=== PATIENT | female | born 1965 | race African-American/Black ===

== ENCOUNTER 2016-05-31 20:57 | Emergency (ER) | payer OTHER ==
[~2016-05-31] VITALS: Ht 170.2 cm; Wt 145.1 kg
[~2016-05-31 20:57] MED LIST: ALBU8.5H6 IH; FURO-69 PO; HYDR-971 PO; HYDR25TA9 PO; LISI-334 PO; LORA10TA3 PO
[2016-05-31 21:09] VITALS: BP 157/77
[2016-05-31] MEDS ORDERED: PROMETH/CODEINE 6.25/10MG 5 ML SYRUP. PO ONE (21:45)
[2016-05-31] MEDS ORDERED: IPRATRPIUM/ALBUTEROL 0.5/2.5MG 3 ML NEBU. NEB ONE (21:45)
[2016-05-31] MEDS ORDERED: ACETAMINOPHEN 500 MG TABLET PO ONE (21:45)
[2016-05-31] MEDS ORDERED: PREDNISONE 20 MG TABLET PO ONE (21:45)
[2016-05-31] MEDS ORDERED: PRED50TA PO (22:36)
[2016-05-31] MEDS ORDERED: PROAIR RESPICL90 MCG IH (22:36)
[2016-05-31] MEDS ORDERED: HYDR115S2 PO (22:36)
[2016-05-31] MEDS ORDERED: AZIT250T PO (22:36)
--- NOTE | 2016-05-31 22:37 | PHYS DOC ---
Past Medical History Past Medical History: Hypertension Past Surgical History: Tubal ligation, Other Additional Past Surgical Histo: patial hyst., 2 tubal pregnancies Alcohol Use: Occasionally Drug Use: None Adult General Chief Complaint Chief Complaint: COUGH HPI HPI Patient is a 50 year old female with history of hypertension who presents with a productive cough nasal congestion and body aches that began yesterday. PCP Dr. Wheeler Review of Systems Review of Systems Constitutional: Denies fever or chills [] Eyes: Denies change in visual acuity, redness, or eye pain [] HENT: nasal congestion Respiratory: cough Cardiovascular: No additional information not addressed in HPI [] GI: Denies abdominal pain, nausea, vomiting, bloody stools or diarrhea [] : Denies dysuria or hematuria [] Musculoskeletal: Denies back pain or joint pain [] Integument: Denies rash or skin lesions [] Neurologic: Denies headache, focal weakness or sensory changes [] Endocrine: Denies polyuria or polydipsia [] Current Medications Current Medications Current Medications Medications (Trade) Dose Ordered Sig/[facility] Start Time Stop Time Status Last Admin Dose Admin Acetaminophen (Tylenol) 1,000 mg 1X ONCE 05/31/16 21:45 05/31/16 21:46 DC 05/31/16 21:38 1,000 MG Albuterol/ Ipratropium (Duoneb) 3 ml 1X ONCE 05/31/16 21:45 05/31/16 21:46 DC 05/31/16 22:03 3 ML Prednisone (Prednisone) 60 mg 1X ONCE 05/31/16 21:45 05/31/16 21:46 DC 05/31/16 21:38 60 MG Promethazine HCl/ Codeine (Phenergan With Codeine) 5 ml 1X ONCE 05/31/16 21:45 05/31/16 21:46 DC 05/31/16 21:38 5 ML Allergies Allergies Allergies Coded Allergies Type Severity Reaction Last Updated Verified No Known Drug Allergies 02/06/13 No Physical Exam Physical Exam Constitutional: Well developed, well nourished, no acute distress, non-toxic appearance. [] HENT: Normocephalic, atraumatic, bilateral external ears normal, oropharynx moist, no oral exudates, nose normal. [] Eyes: PERRLA, EOMI, conjunctiva normal, no discharge. [] Neck: Normal range of motion, no tenderness, supple, no stridor. [] Cardiovascular:Heart rate regular rhythm, no murmur [] Lungs & Thorax: Patient is actively coughing in the ED, lungs sound coarse. Abdomen: Bowel sounds normal, soft, no tenderness, no masses, no pulsatile masses. [] Skin: Warm, dry, no erythema, no rash. [] Back: No tenderness, no CVA tenderness. [] Extremities: No tenderness, no cyanosis, no clubbing, ROM intact, no edema. [] Neurologic: Alert and oriented X 3, normal motor function, normal sensory function, no focal deficits noted. [] Psychologic: Affect normal, judgement normal, mood normal. [] Current Patient Data Vital Signs Vital Signs Date Time Temp Pulse Resp B/P Pulse Ox O2 Delivery O2 Flow Rate FiO2 05/31/16 22:03 96 Room Air 05/31/16 21:09 99.0 86 30 99.0 EKG EKG [] Radiology/Procedures Radiology/Procedures [] Course & Med Decision Making Course & Med Decision Making Pertinent Labs and Imaging studies reviewed. (See chart for details) Patient is in the ED with a productive cough and nasal congestion since yesterday. Her lungs were very coarse on arrival to the ED. She was given a DuoNeb treatment, her lungs cleared up. She was also given prednisone. Chest x- ray interpreted by Dr. Hubbard was suspicious for left lower lobe pneumonia. Patient to be discharged with azithromycin, prednisone and cough medicine. Discharged with instructions to follow-up with the primary care doctor in the next 3-7 days. Dragon Disclaimer Dragon Disclaimer This electronic medical record was generated, in whole or in part, using a voice recognition dictation system. Departure Departure Impression: Primary Impression: Pneumonia Additional Impression: Bronchitis Disposition: HOME, SELF-CARE Condition: STABLE Referrals: ALEX WHEELER MD (PCP) Follow-up with your doctor in one week Patient Instructions: Acute Bronchitis, Pneumonia, Adult Additional Instructions: You were seen for cough in the ED, your chest x-ray was suspicious for pneumonia and bronchitis. We did put you on antibiotics. Complete them. Take the rest prescribed medicines as ordered Scripts Albuterol Sulfate (Proair Respiclick)90 Mcg Aer.pow.ba1 Puff IH PRN Q6HRS PRN SHORTNESS OF BREATH #1 INHALER Prov:MUTUNGA,RUSTY YARD WORKER 05/31/16 Azithromycin (Zithromax)250 Mg Tablet1 Pkg PO UD #1 PKG Prov:RUSTY CHRISTIAN APRN 05/31/16 Hydrocodone/Chlorphen Polis (Tussionex Pennkinetic Susp)480 Ml Eileen.er.12h5 Ml PO Q6-8HRS PRN COUGH #100 ML Prov:RUSTY CHRISTIAN APRN 05/31/16 Prednisone 50 Mg Tablet1 Tab PO DAILY #4 TAB Prov:RUSTY CHRISTIAN APRN 05/31/16 Problem Qualifiers Primary Impression: Pneumonia Pneumonia type: due to unspecified organism Laterality: left Lung location : lower lobe of lung Qualified Code: J18.1 - Lobar pneumonia, unspecified organism RUSTY CHRISTIAN APRN May 31, 2016 22:37
--- NOTE | 2016-06-01 07:51 | RAD ---
Indication flulike symptoms. PA and lateral views of the chest were obtained. Comparison is made to an examination 11/30/2015. The heart size is at the upper limits of normal. There is no congestive heart failure. A focal infiltrate is not seen. Significant pleural fluid is not present. There is no pneumothorax. Overall a significant change compared to the previous exam is not seen. IMPRESSION: No acute or focal process. No significant change
== END 2016-05-31 22:43 | disposition home or self-care (01) ==
LOC: ER 20:57
DX: J18.1 Lobar pneumonia, unspecified organism (principal); J20.9 Acute bronchitis, unspecified; I10 Essential (primary) hypertension
CPT/HCPCS: 71020; 94250; 94640; 99284; J7512; J7620

== ENCOUNTER 2016-07-30 10:36 | Emergency (ER) | payer OTHER ==
[~2016-07-30] VITALS: Ht 160 cm; Wt 140.6 kg
[~2016-07-30 10:36] MED LIST changes: +AZIT250T PO; +HYDR115S2 PO; +PRED50TA PO; +PROAIR RESPICL90 MCG IH
--- NOTE | 2016-07-30 11:25 | RAD ---
EXAM: Chest one view. HISTORY: Chest pain, slurred speech. COMPARISON: 05/31/2016. FINDINGS: A frontal view of the chest is obtained. There are no confluent infiltrates. There is no pneumothorax or pleural effusion. The heart is mildly to moderately enlarged given this projection. IMPRESSION: 1. Cardiomegaly.
[2016-07-30 11:37] LABS: BASO % 0 % (0-3); EOS % 2 % (0-3); HEMATOCRIT 38.6 % (36.0-47.0); HEMOGLOBIN 12.8 g/dL (12.0-15.5); LYMPH # 1.6 x10^3/uL (1.0-4.8); LYMPH % 29 % (24-48); MEAN CORPUSCULAR HEMOGLOBIN 31 pg (25-35); MEAN CORPUSCULAR HGB CONC 33 g/dL (31-37); MEAN CORPUSCULAR VOLUME 95 fL (79-100); MONO % 8 % (0-9); NEUT % 61 % (31-73); PLATELET COUNT 207 x10^3/uL (140-400); RED BLOOD COUNT 4.07 x10^6/uL (3.50-5.40); RED CELL DISTRIBUTION WIDTH 14.8 % (11.5-14.5); WHITE BLOOD COUNT 5.6 x10^3/uL (4.0-11.0)
[2016-07-30 11:43] LABS: CALCIUM 8.9 mg/dL (8.5-10.1); CREATININE 0.8 mg/dL (0.6-1.0); GFR 91.9; POTASSIUM 3.9 mmol/L (3.5-5.1); PROTHROMBIN TIME PATIENT 12.5 SEC (11.7-14.0)
[2016-07-30 11:50] LABS: ALBUMIN 3.6 g/dL (3.4-5.0); ALBUMIN/GLOBULIN RATIO 0.9 (1.0-1.7); MAGNESIUM 2.2 mg/dL (1.8-2.4); TOTAL BILIRUBIN 0.3 mg/dL (0.2-1.0); TOTAL PROTEIN 7.5 g/dL (6.4-8.2)
[2016-07-30 11:57] LABS: CKMB MASS 0.6 ng/mL (0.0-3.6)
--- NOTE | 2016-07-30 12:02 | RAD ---
EXAM: CT head without contrast. HISTORY: Slurred speech, dizziness. TECHNIQUE: Computed tomography of the head was performed without intravenous contrast. COMPARISON: None. FINDINGS: There is no intracranial hemorrhage. Hypoattenuation within the periventricular white matter indicates mild to moderate chronic small vessel ischemic change. The ventricles are normal in size and position. The visualized paranasal sinuses appear clear. The orbits are unremarkable. The temporal bones are unremarkable. The calvarium reveals no suspicious lesions. IMPRESSION: 1. No acute intracranial findings. Mild to moderate chronic small vessel ischemic white matter change. *One or more of the following individualized dose reduction techniques were utilized for this examination: 1. Automated exposure control. 2. Adjustment of the mA and/or kV according to patient size. 3. Use of iterative reconstruction technique.
[2016-07-30 12:08] LABS: BILIRUBIN,URINE NEGATIVE (NEG); GLUCOSE,URINE NEGATIVE (NEG); NITRITE,URINE NEGATIVE (NEG); PROTEIN,URINE NEGATIVE (NEG-TRACE); UROBILINOGEN,URINE 0.2 mg/dL (0.2 mg/dL)
[2016-07-30 12:16] LABS: BARBITURATES NEG (NEG); BENZODIAZEPINES NEG (NEG); CANNABINOIDS NEG (NEG); COCAINE NEG (NEG); METHADONE NEG (NEG); OPIATES NEG (NEG); PHENCYCLIDINE NEG (NEG)
--- NOTE | 2016-07-30 12:25 | EKG ---
[facility] [address] [place] [address] Test Date: 2016-07-30 Test Time: 10:44:35 Pat Name: JAVIER FUNES Department: Room: Gender: F Ripsaw Operator: : 1965 Requested By: RUSTY CHRISTIAN Order Number: [id number] Reading MD: Rudy Maldonado Measurements Intervals [place] Rate: 79 P: 60 VT: 146 QRS: -24 QRSD: 102 T: 14 QT: 380 QTc: 437 Interpretive Statements SINUS RHYTHM LEFTWARD AXIS QRS(T) CONTOUR ABNORMALITY CONSIDER ANTEROSEPTAL MYOCARDIAL DAMAGE RI6.01 Unconfirmed report Compared to ECG 11/30/2015 20:23:07 No significant changes Electronically Signed On 07-31-2016 11:04:24 CDT by Rudy Maldonado
[2016-07-30 13:07] LABS: BACTERIA,URINE FEW /HPF (0-FEW); RBC,URINE RARE /HPF (0-2); SQUAMOUS EPITHELIAL CELL,UR FEW /LPF
--- NOTE | 2016-07-30 13:11 | PHYS DOC ---
Past Medical History Past Medical History: Anxiety, Depression, Hypertension Past Surgical History: Tubal ligation, Other Additional Past Surgical Histo: patial hyst., 2 tubal pregnancies Alcohol Use: Occasionally Drug Use: None Adult General Chief Complaint Chief Complaint: ANXIETY/PANIC ATTACK HPI HPI Patient is a 51 year old female with history of hypertension depression and anxiety who presents today with multiple complaints. Patient is complaining of slurred speech, mid substernal chest pain radiating to the right shoulder unable to rate it or describe it or describe unable to figure anything that makes the pain worse or better, anxiety, depression, patient states the symptoms occurred this morning, and states she has no symptoms right now. Patient states she lost her son approximately 2 or 3 years ago due to a gunshot injury. Patient states since then she's had major anxiety and depression. Patient states she goes through episodes where she has chest pain, slurred speech, gets very anxious and sometimes can't breathe. Patient states she has been told by her own primary care doctor she needs to get counseling as well as was put on Trazodone. Patient states the Trazodone made her very depressed and she stopped taking it. Patient denies any symptoms right now. She states all her symptoms subsided hours ago but she wants to be checked out. She also states her daughter is giving her alot of stress. She states her daughter was jailed and is currently is in a group home house. Patient states her daughter has children who are with the baby daddy. Patient states there is a lot of drama surrounding the daughter, children and baby daddy and she gets dragged into their issues. Patient denies any suicidal or homicidal ideation. Review of Systems Review of Systems Constitutional: Denies fever or chills [] Eyes: Denies change in visual acuity, redness, or eye pain [] HENT: Denies nasal congestion or sore throat [] Respiratory: Denies cough or shortness of breath [] Cardiovascular: chest pain GI: Denies abdominal pain, nausea, vomiting, bloody stools or diarrhea [] : Denies dysuria or hematuria [] Musculoskeletal: Denies back pain or joint pain [] Integument: Denies rash or skin lesions [] Neurologic: slurred speech Endocrine: Denies polyuria or polydipsia [] Allergies Allergies Allergies Coded Allergies Type Severity Reaction Last Updated Verified No Known Drug Allergies 02/06/13 No Physical Exam Physical Exam Constitutional: Well developed, well nourished, no acute distress, non-toxic appearance. [] HENT: Normocephalic, atraumatic, bilateral external ears normal, oropharynx moist, no oral exudates, nose normal. [] Eyes: PERRLA, EOMI, conjunctiva normal, no discharge. [] Neck: Normal range of motion, no tenderness, supple, no stridor. [] Cardiovascular:Heart rate regular rhythm, no murmur [] Lungs & Thorax: Bilateral breath sounds clear to auscultation [] Abdomen: Bowel sounds normal, soft, no tenderness, no masses, no pulsatile masses. [] Skin: Warm, dry, no erythema, no rash. [] Back: No tenderness, no CVA tenderness. [] Extremities: No tenderness, no cyanosis, no clubbing, ROM intact, no edema. [] Neurologic: Alert and oriented X 3, normal motor function, normal sensory function, no focal deficits noted. Cranial nerves II-XII intact. Psychologic: Affect normal, judgement normal, mood normal. [] Current Patient Data Vital Signs Vital Signs Date Time Temp Pulse Resp B/P (MAP) Pulse Ox O2 Delivery O2 Flow Rate FiO2 07/30/16 14:07 70 25 143/68 (93) 97 Room Air 07/30/16 10:40 98.9 98.9 Lab Values Laboratory Tests Test 07/30/16 11:22 07/30/16 11:53 White Blood Count 5.6 x10^3/uL (4.0-11.0) Red Blood Count 4.07 x10^6/uL (3.50-5.40) Hemoglobin 12.8 g/dL (12.0-15.5) Hematocrit 38.6 % (36.0-47.0) Mean Corpuscular Volume 95 fL (79-100) Mean Corpuscular Hemoglobin 31 pg (25-35) Mean Corpuscular Hemoglobin Concent 33 g/dL (31-37) Red Cell Distribution Width 14.8 % (11.5-14.5) H Platelet Count 207 x10^3/uL (140-400) Neutrophils (%) (Auto) 61 % (31-73) Lymphocytes (%) (Auto) 29 % (24-48) Monocytes (%) (Auto) 8 % (0-9) Eosinophils (%) (Auto) 2 % (0-3) Basophils (%) (Auto) 0 % (0-3) Neutrophils # (Auto) 3.4 x10^3uL (1.8-7.7) Lymphocytes # (Auto) 1.6 x10^3/uL (1.0-4.8) Monocytes # (Auto) 0.4 x10^3/uL (0.0-1.1) Eosinophils # (Auto) 0.1 x10^3/uL (0.0-0.7) Basophils # (Auto) 0.0 x10^3/uL (0.0-0.2) Prothrombin Time 12.5 SEC (11.7-14.0) Prothrombin Time INR 1.0 (0.8-1.1) PTT 31 SEC (24-38) Fibrinogen 402 mg/dL (200-440) D-Dimer (Britt) 0.30 ug/mlFEU (0.00-0.50) Sodium Level 140 mmol/L (136-145) Potassium Level 3.9 mmol/L (3.5-5.1) Chloride Level 106 mmol/L (98-107) Carbon Dioxide Level 28 mmol/L (21-32) Anion Gap 6 (6-14) Blood Urea Nitrogen 9 mg/dL (7-20) Creatinine 0.8 mg/dL (0.6-1.0) Estimated GFR (Cockcroft-Gault) 91.9 BUN/Creatinine Ratio 11 (6-20) Glucose Level 104 mg/dL (70-99) H Calcium Level 8.9 mg/dL (8.5-10.1) Magnesium Level 2.2 mg/dL (1.8-2.4) Total Bilirubin 0.3 mg/dL (0.2-1.0) Aspartate Amino Transferase (AST) 33 U/L (15-37) Alanine Aminotransferase (ALT) 38 U/L (14-59) Alkaline Phosphatase 75 U/L (46-116) Creatine Kinase 67 U/L (26-192) Creatine Kinase MB (Mass) 0.6 ng/mL (0.0-3.6) Creatine Kinase MB Relative Index 0.9 % (0-4) Troponin I Quantitative < 0.017 ng/mL (0.000-0.055) IR-Jtz-A-Type Natriuretic Peptide 142 pg/mL (0-124) H Total Protein 7.5 g/dL (6.4-8.2) Albumin 3.6 g/dL (3.4-5.0) Albumin/Globulin Ratio 0.9 (1.0-1.7) L Ethyl Alcohol Level < 10 mg/dL (0-10) Urine Collection Type Unknown Urine Color Yellow Urine Clarity Clear Urine pH 7.0 Urine Specific [place] 1.015 Urine Protein Negative mg/dL (NEG-TRACE) Urine Glucose (UA) Negative mg/dL (NEG) Urine Ketones (Stick) Negative mg/dL (NEG) Urine Blood Negative (NEG) Urine Nitrite Negative (NEG) Urine Bilirubin Negative (NEG) Urine Urobilinogen Dipstick 0.2 mg/dL (0.2 mg/dL) Urine Leukocyte Esterase Small (NEG) Urine RBC Rare /HPF (0-2) Urine WBC 1-4 /HPF (0-4) Urine Squamous Epithelial Cells Few /LPF Urine Bacteria Few /HPF (0-FEW) Urine Mucus Slight /LPF Urine Opiates Screen Neg (NEG) Urine Methadone Screen Neg (NEG) Urine Barbiturates Neg (NEG) Urine Phencyclidine Screen Neg (NEG) Urine Amphetamine/Methamphetamine Neg (NEG) Urine Benzodiazepines Screen Neg (NEG) Urine Cocaine Screen Neg (NEG) Urine Cannabinoids Screen Neg (NEG) Urine Ethyl Alcohol Neg (NEG) Laboratory Tests 07/30/16 11:22 Laboratory Tests 07/30/16 11:22 EKG EKG 10:[address] Claire sinus rhythm, leftward axis, QRS interval 102 , heart rate 79, no STEMI. [] Radiology/Procedures Radiology/Procedures []PROCEDURE: PORTABLE CHEST 1V EXAM: Chest one view. HISTORY: Chest pain, slurred speech. COMPARISON: 05/31/2016. FINDINGS: A frontal view of the chest is obtained. There are no confluent infiltrates. There is no pneumothorax or pleural effusion. The heart is mildly to moderately enlarged given this projection. IMPRESSION: 1. Cardiomegaly. DICTATED and SIGNED BY: LANDRY RILEY MD DATE: 07/30/16 1122 CC: EDWIGE CLAIRE DO; ALEX WHEELER MD; RUSTY CHRISTIAN APRN ~ PROCEDURE: CT HEAD WO CONTRAST EXAM: CT head without contrast. HISTORY: Slurred speech, dizziness. TECHNIQUE: Computed tomography of the head was performed without intravenous contrast. COMPARISON: None. FINDINGS: There is no intracranial hemorrhage. Hypoattenuation within the periventricular white matter indicates mild to moderate chronic small vessel ischemic change. The ventricles are normal in size and position. The visualized paranasal sinuses appear clear. The orbits are unremarkable. The temporal bones are unremarkable. The calvarium reveals no suspicious lesions. IMPRESSION: 1. No acute intracranial findings. Mild to moderate chronic small vessel ischemic white matter change. *One or more of the following individualized dose reduction techniques were utilized for this examination: 1. Automated exposure control. 2. Adjustment of the mA and/or kV according to patient size. 3. Use of iterative reconstruction technique. DICTATED and SIGNED BY: LANDRY RILEY MD DATE: 07/30/16 0287 CC: EDWIGE CLAIRE DO; ALEX WHEELER MD; RUSTY CHRISTIAN APRN ~ Course & Med Decision Making Course & Med Decision Making Pertinent Labs and Imaging studies reviewed. (See chart for details) Patient is in the ED with multiple complaints including slurred speech substernal chest pain and anxiety and depression all this occurred this morning and has occurred multiple times in the last 2 years after patient lost her son through a gunshot related injury. Patient also has a daughter who has been in fdc and is currently in a group home house where patient states there is a lot of drama surrounding the patient's daughter and the children and the baby daddy. Patient states she has been told she needs see a counselor but she refuses to see one and she was on Trazadone which she did not take for long because it made her more depressed. Patient denies any symptoms right now. Patient is negative on the stroke scale i believe her anxiety is causing her most of her symptoms. Patient's labs and EKG and chest x-rays were negative for any acute findings. CT of the head was negative for any acute findings. Patient has normal vitals in the ED. Patient has been in the ED for 2 hours. She states she feels much comfortable at the hospital than at home because she has too much going on at home. Consulted for admision considering patient's symptoms included chest pain, he requested we discharge her with xanax and she follows up with PCP. [place] [facility] [place] her information to follow-up with the primary care doctor at [facility], starch dumper, neurologist. She is in no distress. She is provided return precautions and discharged in stable condition. Nicolás Disclaimer Nciolás Disclaimer This electronic medical record was generated, in whole or in part, using a voice recognition dictation system. Departure Departure Impression: Primary Impression: Chest pain Additional Impressions: Slurred speech Acute anxiety Disposition: 01 HOME, SELF-CARE Condition: STABLE Referrals: ALEX WHEELER MD (PCP) follow up with you primary care doctor tomorrow. HUYEN KNIGHT MD follow up tomorrow NITO HALLMAN MD follow up with the provided neurologist tomorrow. Patient Instructions: Anxiety and Panic Attacks, Chest Pain Observation Additional Instructions: You were seen for multiple complaints. We highly recommend you follow-up with the primary care doctor tomorrow, follow-up with the starch dumper as well as the neurologist as soon as you can. Come back to the ED at any point your symptoms re-occur. Take the prescribed medications as ordered. Scripts Alprazolam (XANAX) 0.5 Mg Tablet 1 TAB PO TID Y for ANXIETY / AGITATION, #20 TAB Prov: RUSTY CHRISTIAN VISUAL MERCHANDISE MANAGER 07/30/16 Problem Qualifiers Primary Impression: Chest pain Chest pain type: unspecified Qualified Codes: R07.9 - Chest pain, unspecified RUSTY CHRISTIAN VISUAL MERCHANDISE MANAGER Jul 30, 2016 13:11
[2016-07-30 14:07] VITALS: BP 143/68
[2016-07-30] MEDS ORDERED: ALPR0.5T PO (14:07)
== END 2016-07-30 14:10 | disposition home or self-care (01) ==
LOC: ER 10:36
DX: R47.81 Slurred speech (principal); R07.2 Precordial pain; I10 Essential (primary) hypertension; F41.9 Anxiety disorder, unspecified; F32.9 Major depressive disorder, single episode, unspecified
CPT/HCPCS: 36415; 70450; 71010; 80053; 80305; 80320; 81001; 82553; 83735; 83880; 84484; 85027; 85379; 85384; 85610; 85730; 93005; G0480; G0481; 99285-25

== ENCOUNTER 2016-09-01 06:04 | Observation (INO) | payer OTHER ==
[~2016-09-01] VITALS: Ht 165.1 cm; Wt 166.5 kg
[~2016-09-01 06:04] MED LIST changes: +ALPR0.5T PO
[2016-09-01] MEDS ORDERED: IV NORMAL SALINE 1000ML BAG 1,000 ML IV SCH ×2 (06:18→07:29)
--- NOTE | 2016-09-01 06:24 | PHYS DOC ---
Past Medical History Past Medical History: Anxiety, Depression, Hypertension Past Surgical History: Tubal ligation, Other Additional Past Surgical Histo: patial hyst., 2 tubal pregnancies Alcohol Use: Occasionally Drug Use: None Adult General Chief Complaint Chief Complaint: CHEST PAIN HPI HPI This is a 51-year-old -[place] female doesn't patient who presents with chest pain began intermittently last night. She said it woke her from sleep described as a pressure in her left chest with no radiation to her neck, abdomen , arm or back. The pain is described as aching that makes her dizzy. She developed dry mouth with a nonproductive cough. She denies any exercise induced dyspnea, fevers, night sweats, weight loss, or other symptoms. She denies any nausea vomiting or diarrhea. Patient does complain of being very anxious with these symptoms. She was very anxious and unable to sleep last night because of symptoms. Patient denies any travel outside the country, she is on no estrogen replacement being menopausal, she's got some slight lower leg edema but no pain. The pain is resolved at this time. She has describes some mild diaphoresis without symptoms. Differential diagnosis for chest pain: Pericarditis, myocarditis, endocarditis, pneumothorax, pneumonia, aortic dissection, esophageal spasm, esophagitis, peptic ulcer disease, acute coronary syndrome, mediastinitis, Boerhaave syndrome , musculoskeletal chest wall pain, costochondritis, intercostal strain, rib fracture, pulmonary contusion, pneumonitis, pleural effusion, pericardial effusion, pericardial tamponode, and pleurisy was considered upon arrival. Patient and EKG, chest x-ray, troponin, CMP, CBC, magnesium, TSH, d-dimer completed. Dr. Wheeler is her PCP Review of Systems Review of Systems Constitutional: Denies fever or chills [] Eyes: Denies change in visual acuity, redness, or eye pain [] HENT: Denies nasal congestion or sore throat [] Respiratory: Patient has had a nonproductive cough and shortness of breath with the symptoms. Cardiovascular: No additional information not addressed in HPI [] GI: Denies abdominal pain, nausea, vomiting, bloody stools or diarrhea [] : Denies dysuria or hematuria [] Musculoskeletal: Denies back pain or joint pain [] Integument: Denies rash or skin lesions [] Neurologic: Denies headache, focal weakness or sensory changes since felt mildly dizzy with the symptoms as well. Endocrine: Denies polyuria or polydipsia [] Current Medications Current Medications Current Medications Medications (Trade) Dose Ordered Sig/Selvin Start Time Stop Time Status Last Admin Dose Admin Aspirin (Children'S Aspirin) 324 mg 1X ONCE 09/01/16 06:45 09/01/16 06:46 DC 09/01/16 06:32 324 MG Fentanyl Citrate (Fentanyl 2ml Vial) 50 mcg PRN Q1HR PRN 09/01/16 07:30 09/02/16 07:29 Lorazepam (Ativan) 1 mg 1X ONCE 09/01/16 06:45 09/01/16 06:46 DC 09/01/16 06:33 1 MG Ondansetron HCl (Zofran) 4 mg PRN Q8HRS PRN 09/01/16 07:30 09/02/16 07:29 Sodium Chloride 1,000 ml @ 100 mls/hr Q10H 09/01/16 07:29 09/02/16 07:28 Sodium Chloride (Normal Saline Flush) 10 ml QSHIFT PRN 09/01/16 06:30 Allergies Allergies Allergies Coded Allergies Type Severity Reaction Last Updated Verified No Known Drug Allergies 02/06/13 No Physical Exam Physical Exam This patient is morbidly obese Constitutional: Well developed, well nourished, no acute distress, non-toxic appearance. [] HENT: Normocephalic, atraumatic, bilateral external ears normal, oropharynx moist, no oral exudates, nose normal. [] Eyes: PERRLA, EOMI, conjunctiva normal, no discharge. [] Neck: Normal range of motion, no tenderness, supple, no stridor. [] Cardiovascular:Heart rate regular rhythm, no murmur [] Lungs & Thorax: Bilateral breath sounds clear to auscultation [] Abdomen: Bowel sounds normal, soft, no tenderness, no masses, no pulsatile masses. [] Skin: Warm, dry, no erythema, no rash. [] Back: No tenderness, no CVA tenderness. [] Extremities: No tenderness, no cyanosis, no clubbing, ROM intact, patient does have some peripheral edema +1+2 pitting in the lower legs bilaterally Neurologic: Alert and oriented X 3, normal motor function, normal sensory function, no focal deficits noted. [] Psychologic: She is anxious but exposed placed normal judgment and mood. Current Patient Data Vital Signs Vital Signs Date Time Temp Pulse Resp B/P (MAP) Pulse Ox O2 Delivery O2 Flow Rate FiO2 09/01/16 06:07 98.2 74 20 173/81 (111) 97 Room Air 98.2 Lab Values Laboratory Tests Test 09/01/16 06:17 09/01/16 06:23 White Blood Count 6.4 x10^3/uL (4.0-11.0) Red Blood Count 4.05 x10^6/uL (3.50-5.40) Hemoglobin 12.7 g/dL (12.0-15.5) Hematocrit 38.2 % (36.0-47.0) Mean Corpuscular Volume 94 fL (79-100) Mean Corpuscular Hemoglobin 31 pg (25-35) Mean Corpuscular Hemoglobin Concent 33 g/dL (31-37) Red Cell Distribution Width 14.7 % (11.5-14.5) H Platelet Count 238 x10^3/uL (140-400) Neutrophils (%) (Auto) 58 % (31-73) Lymphocytes (%) (Auto) 34 % (24-48) Monocytes (%) (Auto) 7 % (0-9) Eosinophils (%) (Auto) 2 % (0-3) Basophils (%) (Auto) 0 % (0-3) Neutrophils # (Auto) 3.7 x10^3uL (1.8-7.7) Lymphocytes # (Auto) 2.2 x10^3/uL (1.0-4.8) Monocytes # (Auto) 0.4 x10^3/uL (0.0-1.1) Eosinophils # (Auto) 0.1 x10^3/uL (0.0-0.7) Basophils # (Auto) 0.0 x10^3/uL (0.0-0.2) D-Dimer (Britt) 0.40 ug/mlFEU (0.00-0.50) Sodium Level 140 mmol/L (136-145) Potassium Level 3.8 mmol/L (3.5-5.1) Chloride Level 104 mmol/L (98-107) Carbon Dioxide Level 28 mmol/L (21-32) Anion Gap 8 (6-14) Blood Urea Nitrogen 13 mg/dL (7-20) Creatinine 1.0 mg/dL (0.6-1.0) Estimated GFR (Cockcroft-Gault) 71.0 Glucose Level 124 mg/dL (70-99) H Calcium Level 8.4 mg/dL (8.5-10.1) L Magnesium Level 2.0 mg/dL (1.8-2.4) Total Bilirubin 0.4 mg/dL (0.2-1.0) Direct Bilirubin 0.1 mg/dL (0.0-0.2) Aspartate Amino Transferase (AST) 18 U/L (15-37) Alanine Aminotransferase (ALT) 30 U/L (14-59) Alkaline Phosphatase 61 U/L (46-116) Creatine Kinase 60 U/L (26-192) Creatine Kinase MB (Mass) 0.7 ng/mL (0.0-3.6) Creatine Kinase MB Relative Index % (0-4) Troponin I Quantitative < 0.017 ng/mL (0.000-0.055) EG-Amc-Q-Type Natriuretic Peptide 38 pg/mL (0-124) Total Protein 7.4 g/dL (6.4-8.2) Albumin 3.6 g/dL (3.4-5.0) Lipase 175 U/L (73-393) Thyroid Stimulating Hormone (TSH) 2.172 uIU/mL (0.358-3.74) Urine Collection Type Unknown Urine Color Yellow Urine Clarity Cloudy Urine pH 6.5 Urine Specific [place] 1.015 Urine Protein Negative mg/dL (NEG-TRACE) Urine Glucose (UA) Negative mg/dL (NEG) Urine Ketones (Stick) Negative mg/dL (NEG) Urine Blood Negative (NEG) Urine Nitrite Negative (NEG) Urine Bilirubin Negative (NEG) Urine Urobilinogen Dipstick 1.0 mg/dL (0.2 mg/dL) Urine Leukocyte Esterase Large (NEG) Urine RBC 0 /HPF (0-2) Urine WBC 11-20 /HPF (0-4) Urine Squamous Epithelial Cells Mod /LPF Urine Bacteria Moderate /HPF (0-FEW) Urine Mucus Mod /LPF Laboratory Tests 09/01/16 06:17 Laboratory Tests 09/01/16 06:17 EKG EKG [] EKG timed 6:09 AM 09/01/2016 demonstrates normal sinus rhythm at a rate of 70 MO interval is normal at 156 QRS is mildly widened at 108. The QTc is normal at 441 this normal EKG with no ST segment T-wave changes consistent with acute coronary ischemia. Read by Dr. Stone. Radiology/Procedures Radiology/Procedures [] Single view chest x-ray completed at 6:44 AM 09/01/[address] Stone shows mild cardiomegaly no specific infiltrate no pneumothorax blunting of the cost fact, was bilaterally with no pleural effusion Course & Med Decision Making Course & Med Decision Making Pertinent Labs and Imaging studies reviewed. (See chart for details) since nursing notes, vital signs and history of reviewed. EKG within normal limits, troponin negative, chest x-ray negative, CMP negative , with exception of elevated glucose mildly hyperglycemic. Patient's d-dimer is negative, patient's proBNP is negative. Differential diagnosis for chest pain: Pericarditis, myocarditis, endocarditis, pneumothorax, pneumonia, aortic dissection, esophageal spasm, esophagitis, peptic ulcer disease, acute coronary syndrome, mediastinitis, Boerhaave syndrome , musculoskeletal chest wall pain, costochondritis, intercostal strain, rib fracture, pulmonary contusion, pneumonitis, pleural effusion, pericardial effusion, pericardial tamponode, and pleurisy. Was considered upon arrival and given the patient's risk factors her heart score was evaluated upon arrival and after troponin was negative is only a 1 patient is very anxious to go home for admission to the hospital for close evaluation by cardiology and a stress test. It is noted though when I arrived in the room patient was asleep she had very sonorous respirations and likely should be evaluated for sleep apnea as a cause for anxiety and sleepiness. History: Highly suspicious 2 points moderately suspicious 1. slightly suspicious 0 point EKG: ST segment depression 2. nonspecific repolarization disturbance 1. normal 0 point Age: Greater than 65 2 points, 65-45 1., less than 45 years old 0 points Risk factors:> 3 risk factors 2 points, 1-2 risk factors one point, no risk factors 0 point Troponin: > 2 times normal 2 points, 1-2 times normal 1., normal limits 0 point Total score: Score % pts MACE/n MACE Policy 0-3 32% 1.9% 0.05% Discharge 4-6 51% 413/3136 13% 1.3% Observation Risk management 7-10 17% 518/1045 50% 2.8% Observation Treatment, CAG []Forging Press Operator note: Internal medicine doctor Sana Forging Press Operator called at of the service [phone] Consult called back at 7:30 am Discussed the case I presented and they agreed with admission. Time of acceptance 7:30 Impression: Chest pain unclear etiology, anxiety, hypertension Disposition: Admission to the hospital for short stay observation chest pain rule out Nicolás Disclaimer Dragon Disclaimer This electronic medical record was generated, in whole or in part, using a voice recognition dictation system. Departure Departure Impression: Primary Impression: Chest pain Disposition: 09 ADMITTED INPATIENT Admitting Physician: Ash De Jesus Condition: IMPROVED Referrals: ALEX WHEELER MD (PCP) RENE STONE MD Sep 01, 2016 06:24
[2016-09-01] MEDS ORDERED: 0.9 % SODIUM CHLORIDE 10 ML DISP.SYRIN. IV PRN (06:30)
[2016-09-01 06:37] LABS: BASO % 0 % (0-3); EOS % 2 % (0-3); HEMATOCRIT 38.2 % (36.0-47.0); HEMOGLOBIN 12.7 g/dL (12.0-15.5); LYMPH # 2.2 x10^3/uL (1.0-4.8); LYMPH % 34 % (24-48); MEAN CORPUSCULAR HEMOGLOBIN 31 pg (25-35); MEAN CORPUSCULAR HGB CONC 33 g/dL (31-37); MEAN CORPUSCULAR VOLUME 94 fL (79-100); MONO % 7 % (0-9); NEUT % 58 % (31-73); PLATELET COUNT 238 x10^3/uL (140-400); RED BLOOD COUNT 4.05 x10^6/uL (3.50-5.40); RED CELL DISTRIBUTION WIDTH 14.7 % (11.5-14.5); WHITE BLOOD COUNT 6.4 x10^3/uL (4.0-11.0)
[2016-09-01 06:43] LABS: CALCIUM 8.4 mg/dL (8.5-10.1); POTASSIUM 3.8 mmol/L (3.5-5.1)
[2016-09-01] MEDS ORDERED: ASPIRIN CHEWABLE 81 MG TABLET. PO ONE (06:45)
[2016-09-01 06:47] LABS: BILIRUBIN,URINE NEGATIVE (NEG); GLUCOSE,URINE NEGATIVE (NEG); NITRITE,URINE NEGATIVE (NEG); PH,URINE 6.5; PROTEIN,URINE NEGATIVE (NEG-TRACE)
[2016-09-01 06:48] LABS: ALBUMIN 3.6 g/dL (3.4-5.0); DIRECT BILIRUBIN 0.1 mg/dL (0.0-0.2); TOTAL BILIRUBIN 0.4 mg/dL (0.2-1.0); TOTAL PROTEIN 7.4 g/dL (6.4-8.2)
[2016-09-01 07:12] LABS: CKMB MASS 0.7 ng/mL (0.0-3.6); CREATINE KINASE 60 U/L (26-192)
[2016-09-01 07:21] LABS: BACTERIA,URINE MODERATE /HPF (0-FEW); RBC,URINE 0 /HPF (0-2); SQUAMOUS EPITHELIAL CELL,UR MOD /LPF
[2016-09-01] MEDS ORDERED: fentaNYL PF VIAL 100 MCG/2 ML VIAL IV PRN (07:30)
[2016-09-01] MEDS ORDERED: ONDANSETRON PF 4 MG/2 ML VIAL. IV PRN ×2 (07:30→09:30)
--- NOTE | 2016-09-01 07:49 | RAD ---
Indication chest pain. PA and lateral views of the chest were obtained and are compared to an examination 07/30/2016. Mild cardiomegaly is noted unchanged. There is no congestive heart failure. There is no focal infiltrate. Significant pleural fluid is not seen. There is no pneumothorax. IMPRESSION: Stable mild cardiomegaly. No acute or focal process seen
[2016-09-01] MEDS ORDERED: ACETAMINOPHEN 325 MG TABLET. PO PRN (09:30)
[2016-09-01] MEDS ORDERED: hydrALAZINE 20 MG/ML VIAL. IVP PRN (09:30)
[2016-09-01] MEDS ORDERED: HYDROcodone/APAP 5/325MG 1 TAB TABLET PO PRN (09:30)
[2016-09-01] MEDS ORDERED: ALBUTEROL SULFATE 2.5 MG/3 ML NEBU. NEB PRN (09:30)
--- NOTE | 2016-09-01 10:22 | EKG ---
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
--- NOTE | 2016-09-01 11:12 | PDOC2 ---
CARDIAC CONSULT DATE OF CONSULT Date of Consult DATE: 09/01/16 TIME: 11:08 REASON FOR CONSULT Reason for Consult: Chest Pain Hypertension Sleep Apnea REFERRING PHYSICIAN Referring Physician: Dr. Florez SOURCE Source: Chart review, Patient HISTORY OF PRESENT ILLNESS HISTORY OF PRESENT ILLNESS This is a 51 yo female who presented with complaints of chest pain. Patient reports pain has been intermittent since last night. Located in her left chest. Describes as stabbing in nature. Non-radiating. Associated with dizziness and "hot shakes." Difficulty to take a deep breath due to pain. No associated diaphoresis, palpitations, or nausea/vomiting. [place] anxious overnight; was unable to sleep due to recurrent pain. No precipitating, exacerbating, or relieving factors. Does have a history of hypertension. PAST MEDICAL HISTORY Cardiovascular: HTN Pulmonary: No pertinent hx GI: No pertinent hx Heme/Onc: No pertinent hx Hepatobiliary: No pertinent hx Psych: Anxiety Rheumatologic: No pertinent hx ENT: No pertinent hx Renal/: No pertinent hx Endocrine: No pertinent hx Dermatology: No pertinent hx PAST SURGICAL HISTORY Past Surgical History: Tubal Ligation FAMILY HISTORY Family History: Hypertension SOCIAL HISTORY Smoke: No ALCOHOL: none Drugs: None Lives: with Family CURRENT MEDICATIONS CURRENT MEDICATIONS Current Medications Medications (Trade) Dose Ordered Sig/Selvin Route PRN Reason Start Time Stop Time Status Last Admin Dose Admin Aspirin (Children'S Aspirin) 324 mg 1X ONCE PO 09/01/16 06:45 09/01/16 06:46 DC 09/01/16 06:32 Lorazepam (Ativan) 1 mg 1X ONCE IV 09/01/16 06:45 09/01/16 06:46 DC 09/01/16 06:33 Sodium Chloride 1,000 ml @ 1,000 mls/hr Q1H IV 09/01/16 06:18 09/01/16 07:17 DC 09/01/16 06:18 Sodium Chloride 1,000 ml @ 100 mls/hr Q10H IV 09/01/16 07:29 09/02/16 07:28 09/01/16 09:13 ALLERGIES ALLERGIES: Coded Allergies: No Known Drug Allergies (Unverified , 02/06/13) ROS Review of System 14 point ROS conducted with pertinent positives noted above in HPI. PHYSICAL EXAM General: Alert, Oriented X3, Cooperative, No acute distress HEENT: Atraumatic, Mucous membr. moist/pink Lungs: Clear to auscultation, Normal air movement Heart: Regular rate, Normal S1, Normal S2, No murmurs Abdomen: Soft, Other (truncal obestity ) Extremities: No cyanosis, No edema, Normal pulses Skin: No significant lesion Neuro: Normal speech, Sensation intact Psych/Mental Status: Mental status NL, Other (anxious ) MUSCULOSKELETAL: Osteoarthritic changes both hands VITALS VITALS Vital Signs Date Time Temp Pulse Resp B/P (MAP) Pulse Ox O2 Delivery O2 Flow Rate FiO2 09/01/16 10:13 65 23 120/78 (92) 98 Room Air 09/01/16 06:07 98.2 98.2 LABS Lab: Laboratory Tests Test 09/01/16 06:17 09/01/16 06:23 White Blood Count 6.4 x10^3/uL (4.0-11.0) Red Blood Count 4.05 x10^6/uL (3.50-5.40) Hemoglobin 12.7 g/dL (12.0-15.5) Hematocrit 38.2 % (36.0-47.0) Mean Corpuscular Volume 94 fL (79-100) Mean Corpuscular Hemoglobin 31 pg (25-35) Mean Corpuscular Hemoglobin Concent 33 g/dL (31-37) Red Cell Distribution Width 14.7 % (11.5-14.5) Platelet Count 238 x10^3/uL (140-400) Neutrophils (%) (Auto) 58 % (31-73) Lymphocytes (%) (Auto) 34 % (24-48) Monocytes (%) (Auto) 7 % (0-9) Eosinophils (%) (Auto) 2 % (0-3) Basophils (%) (Auto) 0 % (0-3) Neutrophils # (Auto) 3.7 x10^3uL (1.8-7.7) Lymphocytes # (Auto) 2.2 x10^3/uL (1.0-4.8) Monocytes # (Auto) 0.4 x10^3/uL (0.0-1.1) Eosinophils # (Auto) 0.1 x10^3/uL (0.0-0.7) Basophils # (Auto) 0.0 x10^3/uL (0.0-0.2) D-Dimer (Britt) 0.40 ug/mlFEU (0.00-0.50) Sodium Level 140 mmol/L (136-145) Potassium Level 3.8 mmol/L (3.5-5.1) Chloride Level 104 mmol/L (98-107) Carbon Dioxide Level 28 mmol/L (21-32) Anion Gap 8 (6-14) Blood Urea Nitrogen 13 mg/dL (7-20) Creatinine 1.0 mg/dL (0.6-1.0) Estimated GFR (Cockcroft-Gault) 71.0 Glucose Level 124 mg/dL (70-99) Calcium Level 8.4 mg/dL (8.5-10.1) Magnesium Level 2.0 mg/dL (1.8-2.4) Total Bilirubin 0.4 mg/dL (0.2-1.0) Direct Bilirubin 0.1 mg/dL (0.0-0.2) Aspartate Amino Transf (AST/SGOT) 18 U/L (15-37) Alanine Aminotransferase (ALT/SGPT) 30 U/L (14-59) Alkaline Phosphatase 61 U/L (46-116) Creatine Kinase 60 U/L (26-192) Creatine Kinase MB (Mass) 0.7 ng/mL (0.0-3.6) Creatine Kinase MB Relative Index % (0-4) Troponin I Quantitative < 0.017 ng/mL (0.000-0.055) ZS-Rkc-J-Type Natriuretic Peptide 38 pg/mL (0-124) Total Protein 7.4 g/dL (6.4-8.2) Albumin 3.6 g/dL (3.4-5.0) Lipase 175 U/L (73-393) Thyroid Stimulating Hormone (TSH) 2.172 uIU/mL (0.358-3.74) Urine Collection Type Unknown Urine Color Yellow Urine Clarity Cloudy Urine pH 6.5 Urine Specific [place] 1.015 Urine Protein Negative mg/dL (NEG-TRACE) Urine Glucose (UA) Negative mg/dL (NEG) Urine Ketones (Stick) Negative mg/dL (NEG) Urine Blood Negative (NEG) Urine Nitrite Negative (NEG) Urine Bilirubin Negative (NEG) Urine Urobilinogen Dipstick 1.0 mg/dL (0.2 mg/dL) Urine Leukocyte Esterase Large (NEG) Urine RBC 0 /HPF (0-2) Urine WBC 11-20 /HPF (0-4) Urine Squamous Epithelial Cells Mod /LPF Urine Bacteria Moderate /HPF (0-FEW) Urine Mucus Mod /LPF ASSESSMENT/PLAN ASSESSMENT/PLAN 1. Chest pain; atypical. Initial troponin negative. EKG without significant acute changes 2. Hypertension; mildly elevated 3. Anxiety; management per PCP Recommendations check lipids, TSH. Trend troponin ASA Resume home antiHTN therapy. Monitor BP trends Pain possible related to anxiety but given risk factors, will proceed with 2- day MPI to r/o ischemia. Problems: JANI NGUYEN APRN Sep 01, 2016 11:12
[2016-09-01 11:27] VITALS: BP 150/77
[2016-09-01 11:31] VITALS: BP 150/77
[2016-09-01] MEDS ORDERED: LISINOPRIL 20 MG TABLET PO SCH (12:00)
[2016-09-01] MEDS: FUROSEMIDE 20 MG TABLET PO SCH (12:00)
[2016-09-01] MEDS ORDERED: REGADENOSON 0.4 MG/5 ML DISP.SYRIN. IV ONE (12:15)
[2016-09-01 12:23] LABS: CHOLESTEROL/HDL RATIO 3.7
[2016-09-01] MEDS ORDERED: NON FORMULARY ITEM (Albuterol Sulfate (Proair Respiclick) 1 PUFF) IH PRN (16:45)
[2016-09-01] MEDS ORDERED: ALPRAZolam 0.5 MG TABLET PO PRN (16:45)
--- NOTE | 2016-09-01 18:24 | PDOC ---
Provider Note Provider Note due to technical issues, stress test results not uploaded into [employer] Stress test reviewed and is normal with normal EF. No further cardiac testing. Ok to DC form CV perspective. thanks final report to follow THALIA TURNER MD Sep 01, 2016 18:24
--- NOTE | 2016-09-01 18:36 | HP ---
ADMIT DATE: 09/01/2016 CHIEF COMPLAINT: Chest pain. HISTORY OF PRESENT ILLNESS: The patient is a 51-year-old morbidly obese -[place] woman with past medical history of hypertension, who presented to the Emergency Room with intermittent chest pain. She relates that her pain is in her left upper chest, sharp, stabbing, lasting for seconds, but has been recurrent during the night. She denies any radiation with this, but does have some dizziness and feeling hot as well as some leg swelling, which has been going on" for a minute." She denies any palpitations, nausea or vomiting. She had been anxious overnight and had been unable to sleep due to the pain. Currently, she is asymptomatic and feeling well. PAST MEDICAL HISTORY: Hypertension. PAST SURGICAL HISTORY: Tubal ligation. FAMILY HISTORY: Positive for CAD in her mother. SOCIAL HISTORY: Lives with her family, never smoked. No toxic habits. ALLERGIES: No known drug allergies. MEDICATIONS: MAR reconciled with home medications. REVIEW OF SYSTEMS: Positive as per HPI. She denies any nausea, vomiting, abdominal pain, diarrhea or symptoms in rest of organ system review. PHYSICAL EXAMINATION: VITAL SIGNS: From today show a blood pressure of 150/77, heart rate of 75, respiratory rate at 18. She is afebrile. GENERAL: This is a morbidly obese -[place] woman, alert and oriented, in no acute distress. HEENT: Shows no scleral icterus. NECK: Short and thick. LUNGS: Clear to auscultation bilaterally. HEART: Has regular rate and rhythm without any murmurs. ABDOMEN: Massively obese. Organs could not be palpated. Bowel sounds are positive. EXTREMITIES: Show no edema. SKIN: Warm, soft and dry without any rash. LABORATORY DATA: CBC with a WBC of 6.4, hemoglobin 12.7, platelets of 238. Chemistries with a BUN and creatinine of 13 and 1.0. Electrolytes within normal. LFTs within normal. Troponin x 2 negative. TSH at 2.17. LDL at 114, cholesterol 187, triglycerides 108. RADIOGRAPHIC FINDINGS: CT of the chest shows stable mild cardiomegaly. ASSESSMENT AND PLAN: The patient is a 51-year-old morbidly obese -[place] woman with hypertension, who presents with atypical chest pain. Suspicion is that this is related to gastroesophageal reflux disease/esophagitis. We will start her on PPI. Nevertheless, given the risk factors, we will rule her out for acute coronary syndrome, obtain cardiac consult and anticipate further workup there as well. We will delineate further risk factors including diabetes with a hemoglobin A1c. LFTs surprisingly normal. She will be started on Lovenox in the morning. NUNU TRUJILLO MD DR: TRISHA/nts JOB#: [id number] / [id number] MARIIA
[2016-09-01 19:00] VITALS: BP 120/62
[2016-09-01] MEDS: LISINOPRIL 20 MG TABLET PO SCH (20:03)
[2016-09-01] MEDS: hydroCHLOROthiazide 25 MG TABLET PO SCH (20:04)
[2016-09-01 23:00] VITALS: BP 132/64
[2016-09-02 03:00] VITALS: BP 130/72
[2016-09-02 06:48] LABS: CALCIUM 8.5 mg/dL (8.5-10.1); CREATININE 0.9 mg/dL (0.6-1.0); GFR 80.2; POTASSIUM 3.6 mmol/L (3.5-5.1)
[2016-09-02 06:56] LABS: BASO % 0 % (0-3); EOS % 2 % (0-3); HEMATOCRIT 37.4 % (36.0-47.0); HEMOGLOBIN 12.4 g/dL (12.0-15.5); LYMPH # 1.7 x10^3/uL (1.0-4.8); LYMPH % 27 % (24-48); MEAN CORPUSCULAR HEMOGLOBIN 31 pg (25-35); MEAN CORPUSCULAR HGB CONC 33 g/dL (31-37); MEAN CORPUSCULAR VOLUME 95 fL (79-100); MONO % 7 % (0-9); NEUT % 63 % (31-73); PLATELET COUNT 223 x10^3/uL (140-400); RED BLOOD COUNT 3.95 x10^6/uL (3.50-5.40); RED CELL DISTRIBUTION WIDTH 14.2 % (11.5-14.5); WHITE BLOOD COUNT 6.3 x10^3/uL (4.0-11.0)
[2016-09-02 07:25] VITALS: BP 131/82
[2016-09-02] MEDS: hydroCHLOROthiazide 25 MG TABLET PO SCH (08:56)
[2016-09-02] MEDS: FUROSEMIDE 20 MG TABLET PO SCH (08:56)
[2016-09-02] MEDS: LISINOPRIL 20 MG TABLET PO SCH (08:57)
[2016-09-02] MEDS ORDERED: CETIRIZINE HCL 10 MG TABLET. PO SCH (09:00)
[2016-09-02 11:32] VITALS: BP 117/73
[2016-09-02 15:31] VITALS: BP 136/86
[2016-09-02 19:56] VITALS: BP 142/90
--- NOTE | 2016-09-03 00:38 | DS ---
DATE OF DISCHARGE: 09/02/2016 CHIEF COMPLAINT: Chest pain. HOSPITAL COURSE: The patient is a 51-year-old morbidly obese -[place] woman with past medical history of hypertension who presented to the Emergency Room with intermittent chest pain. The chest pain was rather atypical, but nevertheless, the patient was admitted for rule out ACS. Suspicion was for GERD. She indeed ruled out for cardiac etiology by enzymes and EKGs. Cardiology consult was obtained and the patient was taken for a stress test, which was normal including EF. No further workup was indicated and the patient was discharged on the . PHYSICAL EXAMINATION: VITAL SIGNS: Blood pressure of 136/86, heart rate of 64, respiratory rate at 18. She is afebrile. GENERAL: This is a 51-year-old -[place] woman, alert and oriented, in no acute distress. HEENT: Shows no scleral icterus. NECK: Supple. LUNGS: Clear. HEART: Has regular rate and rhythm. ABDOMEN: Morbidly obese, positive bowel sounds. EXTREMITIES: Show no edema. DISCHARGE DATE: 09/02/2016. DISCHARGE DIAGNOSES: Chest pain, GERD with esophagitis. DISCHARGE DISPOSITION: To home. DISCHARGE CONDITION: Improved. DISCHARGE MEDICATIONS: Please refer to MAR. DISCHARGE INSTRUCTIONS: The patient will follow up with her PCP as needed. NUNU TRUJILLO MD DR: UR/nts JOB#: [id number] / [id number] ALEX Pina MD MTDD
--- NOTE | 2016-09-04 15:23 | RAD ---
APPROVED REPORT Test Type: Pharmacological Stress Nurse/Tech: Ida Wyatt R.N. Test Indications: c/p Cardiac History: htn Medications: See Electronic Medical Record Medical History: See Electronic Medical Record Resting ECG: SR Resting Heart Rate: 67 bpm Resting Blood Pressure: 131/79mmHg Pretest Chest Pain: No chest pain Nurse/Tech Notes S1S2, lungs CTA Consent: The procedure was explained to the patient in lay terms. Informed consent was witnessed. [place] eout was entered into [employer]. History and Stress Test performed by DERREK Gordon Pharm. Details Pharmacologic stress testing was performed using 0.4mg per 5ml of regadenoson given intravenously ove r 7-10 seconds. Stress Symptoms slight dyspnea which she quickly recovered from POST EXERCISE Reason for Termination: Infusion complete Max HR: 91 bpm Max Blood Pressure: 131/71mmHg Blood Pressure response to exercise: Normal blood pressure response during stress. Heart Rate response to exercise: wnl Chest Pain: No. Arrhythmia: No. ST Change: No. INTERPRETATION Stress EKG Conclusion: Baseline EKG showed sinus rhythm. No ischemic changes at peak stress. No arr hythmias. Imaging Protocol IMAGE PROTOCOL: Stress Tc-99m/rest Tc-99m 2 days Rest: Stress: Viability: Radiopharm.Tc99m [id number] Sestamibi Mqik15eUd 35.2mCi Duration 12min. 12min. Img Date 09/02/2016 09/01/2016 Inj-Img [id number]. 60min. Rest Admin Site:IV - Right WristAdministrator:DERREK Gordon Stress Admin Site: IV - Right WristAdministrator: DERREK Gordon STRESS DATA End Diast. Vol.101.0mlAv. Heart Rate71.0bpm End Syst. Vol.31.0mlCO Index BSA0.0L/min Myocardial Fekn326.0gEject. Mzrudnul12.0% Stress Rates Pk. Fill Rate2.66EDV/secLVtime Pk. Fill 180.64msec Pk. Empty Rate3.62ESV/secLVtime Pk. Vfshk332.82msec 02/14 Pk. Fill1.14EDV/sec Stress Scores Regional WT0.00Summed WT2.00 Regional WM0.00Summed WM10.00 Study quality was good. Left Ventricular size was Normal at Rest and Stress. Lung uptake was Normal. Left Ventricular ejection fraction is 69%. The rest and stress images show normal perfusion, normal contraction and thickening. LV Perf. Quant 17 Seg. SSS0.00 Stress Defect Extent (% LAD)0.00Rest Defect Extent (% LAD)Rev. Defect Extent (% LAD)0.00 Stress Defect Extent (% LCX) 0.00Rest Defect Extent (% LCX)Rev. Defect Extent (% LCX)0.00 Stress Defect Extent (% RCA)0.00Rest Defect Extent (% RCA)Rev. Defect Extent (% RCA)0.00 Stress Defect Extent (% PRADEEP)0.00Rest Defect Extent (% PRADEEP)Rev. Defect Extent (% PRADEEP)0.00 Conclusion 1. Regadenoson cardioisotope stress test did not show any evidence of ischemia or infarct. 2. Normal left ventricular systolic function with ejection fraction calculated at 69%. 3. Low risk for cardiac events.
== END 2016-09-02 19:00 | disposition home or self-care (01) ==
LOC: ER 06:04 → ED HOLD 07:21 → 6 SOUTH 10:14
PROVIDERS: ADMIT Internal Medicine; ATTEND Internal Medicine
DX: R07.89 Other chest pain (principal); K21.0 Gastro-esophageal reflux disease with esophagitis; E66.01 Morbid (severe) obesity due to excess calories; F41.9 Anxiety disorder, unspecified; G47.30 Sleep apnea, unspecified; I10 Essential (primary) hypertension
CPT/HCPCS: 36415; 71020; 78452; 80048; 80061; 80076; 81001; 82553; 83036; 83690; 83735; 83880; 84443; 84484; 85027; 85379; 87086; 93005; 93017; 94250; 94640; 94760; 96361; 96374; 96376; 99285; A9500; G0378; J2060; J2785; J7030; J7613; 87186; 96375; G0379

== ENCOUNTER 2016-11-21 16:47 | Emergency (ER) | payer OTHER ==
[~2016-11-21] VITALS: Ht 170.2 cm; Wt 145.1 kg
--- NOTE | 2016-11-21 17:10 | PHYS DOC ---
Past Medical History Past Medical History: Anxiety, Depression, Hypertension Past Surgical History: Tubal ligation, Other Additional Past Surgical Histo: patial hyst., 2 tubal pregnancies Alcohol Use: Occasionally Drug Use: None Adult General Chief Complaint Chief Complaint: ANXIETY/PANIC ATTACK HPI HPI Patient is a 51 year old AA female who presents with anxiety and depression presents with anxiety. Patient was seen at [facility] in by her primary care physician today for the same. She was prescribed Celexa and another anxiety medication believed to be Ativan. She has not filled either the prescriptions. Patient continues report feeling anxious with a dry mouth. She reports nervousness. No no report of chest pain shortness breath, nausea vomiting or sweats. No diarrhea. No fever chills. No other symptoms or complaints. Review of Systems Review of Systems Review symptoms as per history of present illness. All other review symptoms are negative. Current Medications Current Medications Current Medications Medications (Trade) Dose Ordered Sig/Selvin Start Time Stop Time Status Last Admin Dose Admin Lorazepam (Ativan) 2 mg 1X ONCE 11/21/16 17:15 11/21/16 17:16 DC 11/21/16 17:24 2 MG Allergies Allergies Allergies Coded Allergies Type Severity Reaction Last Updated Verified No Known Drug Allergies 02/06/13 No Physical Exam Physical Exam Constitutional: Well developed, well nourished, no acute distress. [] HENT: Normocephalic, atraumatic, bilateral external ears normal, oropharynx moist, no oral exudates, nose normal. [] Eyes: PERRLA, EOMI, conjunctiva normal. [] Neck: Normal range of motion. [] Cardiovascular:Heart rate regular rhythm. [] Lungs & Thorax: Bilateral breath sounds clear to auscultation. [] Abdomen: Bowel sounds normal, soft, no tenderness. [] Skin: Warm, dry, no erythema, no rash. [] Back: No tenderness. [] Extremities: No tenderness, no cyanosis, no clubbing, ROM intact, no edema. [] Neurologic: Alert and oriented X 3, normal motor function, normal sensory function, no focal deficits noted. [] Psychologic: Affect, anxious, judgement normal, mood normal. [] Current Patient Data Vital Signs Vital Signs Date Time Temp Pulse Resp B/P (MAP) Pulse Ox O2 Delivery O2 Flow Rate FiO2 11/21/16 17:54 72 18 140/66 (90) 98 Room Air 11/21/16 16:53 98.4 98.4 Lab Values Laboratory Tests Test 11/21/16 16:55 11/21/16 17:16 Urine Collection Type Unknown Urine Color Yellow Urine Clarity Clear Urine pH 7.0 Urine Specific [place] <=1.005 Urine Protein Negative mg/dL (NEG-TRACE) Urine Glucose (UA) Negative mg/dL (NEG) Urine Ketones (Stick) Negative mg/dL (NEG) Urine Blood Negative (NEG) Urine Nitrite Negative (NEG) Urine Bilirubin Negative (NEG) Urine Urobilinogen Dipstick 0.2 mg/dL (0.2 mg/dL) Urine Leukocyte Esterase Trace (NEG) Urine RBC 0 /HPF (0-2) Urine WBC Occ /HPF (0-4) Urine Squamous Epithelial Cells Few /LPF Urine Bacteria Few /HPF (0-FEW) Glucose (Fingerstick) 97 mg/dL (70-99) EKG EKG [EKG: Normal sinus rhythm, left axis deviation, rate 76, no acute ST-T wave changes. Interpretation by me.] Radiology/Procedures Radiology/Procedures [] Course & Med Decision Making Course & Med Decision Making Pertinent Labs and Imaging studies reviewed. (See chart for details) [Symptoms consistent with anxiety. Improved with treatment. EKG, blood sugar unremarkable. Vital signs stable. Recommend taking medications as prescribed from primary care physician and following up with primary care physician for further evaluation. Return precautions reviewed. Patient verbalizes understanding agreement with discharge instructions prior to departure.] Dragon Disclaimer Dragon Disclaimer This electronic medical record was generated, in whole or in part, using a voice recognition dictation system. Departure Departure Impression: Primary Impression: Acute anxiety Disposition: 01 HOME, SELF-CARE Condition: GOOD Referrals: KELLEN PATRICIO JR, MD (PCP) Patient Instructions: Anxiety and Panic Attacks, [id number] Additional Instructions: Please fill medications as prescribed by your PCP and take as directed. Follow- up with your PCP for reevaluation of symptoms. EDWIGE SOSA DO Nov 21, 2016 17:10
[2016-11-21] MEDS ORDERED: LORazepam 1 MG TABLET PO ONE (17:15)
--- NOTE | 2016-11-21 17:18 | EKG ---
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
[2016-11-21 17:30] LABS: BILIRUBIN,URINE NEGATIVE (NEG); GLUCOSE,URINE NEGATIVE (NEG); NITRITE,URINE NEGATIVE (NEG); PROTEIN,URINE NEGATIVE (NEG-TRACE); UROBILINOGEN,URINE 0.2 mg/dL (0.2 mg/dL)
[2016-11-21 17:54] VITALS: BP 140/66
[2016-11-21 17:58] LABS: BACTERIA,URINE FEW /HPF (0-FEW); RBC,URINE 0 /HPF (0-2); SQUAMOUS EPITHELIAL CELL,UR FEW /LPF; WBC,URINE OCC /HPF (0-4)
== END 2016-11-21 18:23 | disposition home or self-care (01) ==
LOC: ER 16:48
DX: F41.9 Anxiety disorder, unspecified (principal); R68.2 Dry mouth, unspecified; F32.9 Major depressive disorder, single episode, unspecified; I10 Essential (primary) hypertension
CPT/HCPCS: 81001; 82962; 87086; 93005; 99285-25